=== PATIENT | female | born 1980 | race Caucasian/White ===

== ENCOUNTER 2017-11-16 15:17 | Day surgery (SDC) | payer BC, OTHER ==
[~2017-11-16] VITALS: Ht 160 cm; Wt 67.0 kg
[~2017-11-16 15:17] MED LIST: Budeprion Xl300 MG; OXYACE5T PO; PROM25 PO
[2017-11-16] MEDS ORDERED: HYDCHL25 PO (15:39)
[2017-11-16] MEDS ORDERED: SUBOXONE 8 MG-1 EACH SL (15:39)
[2017-11-16] MEDS ORDERED: EZ NITE SLEEP25 MG PO (15:43)
[2017-11-16] MEDS ORDERED: CLON.5 PO (15:43)
== END 2017-11-16 16:54 | disposition home or self-care (01) ==
LOC: ORSCSDS 15:17
PROVIDERS: Anesthesiology
PROC: 3E0R33Z Introduction of Anti-inflammatory into Spinal Canal, Percutaneous Approach (ICD-10-PCS; principal; 2017-11-16 16:00)
DX: M50.122 Cervical disc disorder at C5-C6 level with radiculopathy (principal); F41.8 Other specified anxiety disorders; Z79.899 Other long term (current) drug therapy
CPT/HCPCS: J1040; J2250; J3010; J7040

== ENCOUNTER → 2018-01-25 | Outpatient (CLI) | payer BC ==
[~2018-01-25] MED LIST changes: +CLON.5 PO; +EZ NITE SLEEP25 MG PO; +HYDCHL25 PO; +SUBOXONE 8 MG-1 EACH SL
== END | disposition home or self-care (01) ==
LOC: LAB SHORT 14:52 → OLS 14:52
PROVIDERS: Nurse Practitioner Women's Health
DX: Z12.4 Encounter for screening for malignant neoplasm of cervix (principal); Z91.89 Other specified personal risk factors, not elsewhere classified
CPT/HCPCS: 87624; G0123

== ENCOUNTER 2021-07-20 23:00 | Emergency (ER) | payer OTHER ==
[~2021-07-20] VITALS: Ht 162.6 cm; Wt 59.0 kg
== END 2021-07-21 01:30 | disposition home or self-care (01) ==
LOC: ER 23:00
DX: S42.212A Unspecified displaced fracture of surgical neck of left humerus, initial encounter for closed fracture (principal); S01.112A Laceration without foreign body of left eyelid and periocular area, initial encounter; Y04.8XXA Assault by other bodily force, initial encounter
CPT/HCPCS: 12013; 29105; 70450; 72125; 73030; 96374; 96375; 99284-25; A9270; J1170; J2405; J3010; J7030

== ENCOUNTER 2021-07-28 13:07 | Day surgery (SDC) | payer OTHER ==
[~2021-07-28] VITALS: Ht 162.6 cm; Wt 61.9 kg
[2021-07-28 11:07] LABS: Influenza A, PCR NEGATIVE (NEGATIVE); Influenza B, PCR NEGATIVE (NEGATIVE); Resp Syncytial Virus, PCR NEGATIVE (NEGATIVE); SARS-Cov-2 (COVID-19) PCR, MMC NEGATIVE (NEGATIVE)
[2021-07-28] MEDS ORDERED: SERT100 PO (13:23)
--- NOTE | 2021-07-28 18:36 | NUR ---
PATIENT GETTIGN DRESSED WITH RNS TIMES 2 HELP. AQUAL CELL REMAINS IN PLACE STLING ON. NO CHANGE IN PAIN.
== END 2021-07-28 22:46 | disposition home or self-care (01) ==
LOC: ORSCMMR 13:07 → ORD 13:30 → ORSCMMR 13:30
PROVIDERS: Orthopaedic Surgery
PROC: 0PSD04Z Reposition Left Humeral Head with Internal Fixation Device, Open Approach (ICD-10-PCS; principal; 2021-07-28 13:30)
DX: S42.202A Unspecified fracture of upper end of left humerus, initial encounter for closed fracture (principal); I10 Essential (primary) hypertension; F41.8 Other specified anxiety disorders; Z79.899 Other long term (current) drug therapy
CPT/HCPCS: 0241U; A9270; C1713; J0690; J1100; J1885; J2250; J2405; J2704; J3010; J7120